=== PATIENT | female | born 1930 | race Caucasian/White ===

== ENCOUNTER 2017-05-14 21:11 | Emergency (ER) | payer OTHER ==
[~2017-05-14] VITALS: Ht 160 cm; Wt 66.8 kg
[~2017-05-14 21:11] MED LIST: ACCUPRIL40 MG; ACCUPRIL40 MG PO; ASPIRIN81 M1; ATENOLOL50 MG; CALICUM 500+D1 EACH PO; CLONIDINE HCL0.1 MG; GLUCOPHAGE500 MG PO; K-DUR10 ME2 PO; METFORMIN HCL500 MG; METOPROLOL TART25 MG PO; METOPROLOL TART50 MG PO; NAPROXEN375 M2; NORVASC10 MG; NORVASC10 MG PO; Norvasc PO; OS-CAL 500+D T1 EAC1 PO; Oyst-Cal D, Oscal W/ PO; PRAVACHOL40 MG PO; PRAVASTATIN SOD20 MG; PRILOSEC20 MG; RX BALANCE INT1 EACH PO; THERAGRAN1 TABLET PO; ZESTRIL20 MG; ZOCOR40 MG
[2017-05-14 22:14] LABS: HEMATOCRIT 38.1 % (36.0-46.0); MCH 30.3 PG (29.0-34.0); MCHC 34.6 G/DL (30.0-36.0); MCV 87.4 FL (83-99); MEAN PLAT.VOLUME 10.6 uM^3 (9.5-12.4); PLATELET COUNT 292 K/uL (156-360); RBC DIS.WIDTH-CV 12.6 % (11.8-14.6); RBC DIS.WIDTH-SD 40.1 % (39-53); RED BLOOD COUNT 4.36 M/uL (3.80-5.20); WHITE BLOOD COUNT 11.3 K/uL (4.1-10.2)
[2017-05-14 22:23] LABS: CHLORIDE 105 mEq/L (99-109); POTASSIUM 4.1 mEq/L (3.7-5.4); SODIUM 140 mEq/L (136-147)
[2017-05-14 22:26] LABS: GLUCOSE 128 mg/dL (70-99)
[2017-05-14 22:27] LABS: ANION GAP 12 MEQ/L (2-14)
[2017-05-14 22:28] LABS: TOTAL BILIRUBIN 0.6 mg/dL (0.0-1.0)
[2017-05-14 22:29] LABS: ALKALINE PHOSPHATASE 66 IU/L (3-129)
[2017-05-14 22:30] LABS: GFR ESTIMATE (CALCULATED) > 59 mL/min/
[2017-05-14 22:31] LABS: UREA NITROGEN (BUN) 22 mg/dL (9-23)
[2017-05-14 23:03] LABS: ADD MIUA? NO; BILIRUBIN NEGATIVE; BLOOD NEGATIVE; COLOR STRAW ((YELLOW)); GLUCOSE (STRIP) NEGATIVE; KETONES 5; LEUKOCYTES NEGATIVE; NITRITE NEGATIVE; PROTEIN (STRIP) NEGATIVE; SPECIFIC GRAVITY 1.005 (1.000-1.030); UCUL ADDED? NO; UROBILINOGEN 0.2 MG/DL (0.2-1.0)
[2017-05-15] MEDS ORDERED: ZOFRAN ODT4 MG PO (01:23)
[2017-05-15] MEDS ORDERED: CIPRO500 MG PO (01:23)
[2017-05-15] MEDS ORDERED: NORCO 5/3251 TABLET PO (01:23)
[2017-05-15] MEDS ORDERED: FLAGYL500 MG PO (01:23)
[2017-05-15 01:46] VITALS: BP 129/59
== END 2017-05-15 01:57 | disposition home or self-care (01) ==
LOC: EME 21:11 → EXP 21:11
PROVIDERS: Physician Assistant
DX: K57.92 Diverticulitis of intestine, part unspecified, without perforation or abscess without bleeding (principal); I10 Essential (primary) hypertension; E78.5 Hyperlipidemia, unspecified; E11.9 Type 2 diabetes mellitus without complications; Z90.49 Acquired absence of other specified parts of digestive tract; Z79.84 Long term (current) use of oral hypoglycemic drugs
CPT/HCPCS: 74020; 74177; 80053; 81003; 85027; 99281; 99285

== ENCOUNTER 2017-06-19 20:01 | Emergency (ER) | payer OTHER ==
[~2017-06-19] VITALS: Ht 160 cm; Wt 66.2 kg
[~2017-06-19 20:01] MED LIST changes: +CIPRO500 MG PO; +FLAGYL500 MG PO; +NORCO 5/3251 TABLET PO; +ZOFRAN ODT4 MG PO
[2017-06-19 21:01] LABS: HEMATOCRIT 37.5 % (36.0-46.0); MCH 30.2 PG (29.0-34.0); MCHC 34.7 G/DL (30.0-36.0); MCV 87.2 FL (83-99); PLATELET COUNT 497 K/uL (156-360); RBC DIS.WIDTH-CV 13.2 % (11.8-14.6); RBC DIS.WIDTH-SD 41.1 % (39-53); WHITE BLOOD COUNT 5.7 K/uL (4.1-10.2)
[2017-06-19 21:11] LABS: ALBUMIN 4.5 g/dL (3.2-4.8)
[2017-06-19 21:11] LABS: APPEARANCE CLEAR ((CLEAR)); BILIRUBIN NEGATIVE; BLOOD NEGATIVE; COLOR STRAW ((YELLOW)); GLUCOSE (STRIP) NEGATIVE; KETONES NEGATIVE; LEUKOCYTES NEGATIVE; NITRITE NEGATIVE; PROTEIN (STRIP) NEGATIVE; SPECIFIC GRAVITY 1.009 (1.000-1.030); UCUL ADDED? NO; UROBILINOGEN 0.2 MG/DL (0.2-1.0)
[2017-06-19 21:12] LABS: CHLORIDE 104 mEq/L (99-109); POTASSIUM 4.3 mEq/L (3.7-5.4); SODIUM 140 mEq/L (136-147)
[2017-06-19 21:14] LABS: GLUCOSE 109 mg/dL (70-99); TOTAL PROTEIN 8.1 g/dL (6.4-8.3)
[2017-06-19 21:16] LABS: TOTAL BILIRUBIN 0.3 mg/dL (0.0-1.0)
[2017-06-19 21:17] LABS: ALKALINE PHOSPHATASE 72 IU/L (3-129)
[2017-06-19 21:18] LABS: CREATININE 0.9 mg/dL (0.6-1.3); GFR ESTIMATE (CALCULATED) > 59 mL/min/
[2017-06-19 21:19] LABS: AST (GOT) 20 IU/L (2-34); UREA NITROGEN (BUN) 17 mg/dL (9-23)
[2017-06-19 21:21] LABS: ALT (GPT) 10 IU/L (3-49)
[2017-06-19] MEDS ORDERED: ZOFRAN ODT4 MG PO (23:10)
[2017-06-19] MEDS ORDERED: CELEXA10 MG PO (23:10)
[2017-06-20 00:18] VITALS: BP 142/73
== END 2017-06-20 00:19 | disposition home or self-care (01) ==
LOC: EME 20:01
DX: R11.0 Nausea (principal); I10 Essential (primary) hypertension; F41.9 Anxiety disorder, unspecified; E78.5 Hyperlipidemia, unspecified; E11.9 Type 2 diabetes mellitus without complications; Z79.84 Long term (current) use of oral hypoglycemic drugs; Z90.49 Acquired absence of other specified parts of digestive tract
CPT/HCPCS: 80053; 81003; 85027; 93005; 99281; 99284

== ENCOUNTER 2017-06-23 20:37 | Emergency (ER) | payer OTHER ==
[~2017-06-23] VITALS: Ht 160 cm; Wt 70.0 kg
[~2017-06-23 20:37] MED LIST changes: +CELEXA10 MG PO; -PRAVACHOL40 MG PO; +PRAVACHOL80 MG PO
[2017-06-23 21:00] LABS: HEMATOCRIT 36.4 % (36.0-46.0); HEMOGLOBIN 12.6 G/DL (11.9-15.5); MCH 29.7 PG (29.0-34.0); MCHC 34.6 G/DL (30.0-36.0); MCV 85.8 FL (83-99); PLATELET COUNT 361 K/uL (156-360); RBC DIS.WIDTH-SD 39.9 % (39-53); RED BLOOD COUNT 4.24 M/uL (3.80-5.20); WHITE BLOOD COUNT 7.5 K/uL (4.1-10.2)
[2017-06-23 21:08] LABS: ALBUMIN 4.4 g/dL (3.2-4.8)
[2017-06-23 21:09] LABS: CHLORIDE 101 mEq/L (99-109); POTASSIUM 4.1 mEq/L (3.7-5.4); SODIUM 134 mEq/L (136-147)
[2017-06-23 21:11] LABS: GLUCOSE 134 mg/dL (70-99); TOTAL PROTEIN 7.7 g/dL (6.4-8.3)
[2017-06-23 21:14] LABS: ALKALINE PHOSPHATASE 65 IU/L (3-129)
[2017-06-23 21:15] LABS: GFR ESTIMATE (CALCULATED) 56 mL/min/
[2017-06-23 21:16] LABS: AST (GOT) 20 IU/L (2-34); UREA NITROGEN (BUN) 21 mg/dL (9-23)
[2017-06-23 21:18] LABS: ALT (GPT) 11 IU/L (3-49)
[2017-06-23 21:26] LABS: TOTAL BILIRUBIN 0.4 mg/dL (0.0-1.0)
[2017-06-23 21:45] LABS: LIPASE 74 U/L (1.0-51.0)
[2017-06-23 21:57] LABS: APPEARANCE SL.HAZY ((CLEAR)); BILIRUBIN NEGATIVE; BLOOD NEGATIVE; COLOR YELLOW ((YELLOW)); GLUCOSE (STRIP) NEGATIVE; KETONES 20; LEUKOCYTES SMALL; NITRITE NEGATIVE; PROTEIN (STRIP) 30; SPECIFIC GRAVITY 1.016 (1.000-1.030); UROBILINOGEN 0.2 MG/DL (0.2-1.0)
[2017-06-23 22:08] LABS: BACTERIA NONE SEEN /HPF; EPITHELIAL CELLS RARE /HPF; HYALINE CASTS 0-5 /LPF; MUCUS TRACE /LPF; RED BLOOD CELLS 0-5 /HPF (0-5); UCUL ADDED? YES; WHITE BLOOD CELLS 15-20 /HPF (0-5)
[2017-06-23] MEDS ORDERED: ONDANSETRON ODT4 MG PO (22:57)
[2017-06-23] MEDS ORDERED: AUGMENTIN875 MG PO (22:57)
[2017-06-24 00:40] VITALS: BP 136/67
[2017-06-25] MEDS ORDERED: CELEXA10 MG PO (19:17)
[2017-06-25] MEDS ORDERED: ADULT ASPIRIN R81 MG PO (19:18)
[2017-06-25] MEDS ORDERED: CLARITIN,ALAVAR10 MG PO (19:18)
[2017-06-25] MEDS ORDERED: PRINIVIL20 MG PO (19:19)
[2017-06-25] MEDS ORDERED: RANITIDINE HCL150 MG PO (19:19)
== END 2017-06-24 00:42 | disposition home or self-care (01) ==
LOC: EME → EDBD 20:37 → EME 20:37
DX: K57.32 Diverticulitis of large intestine without perforation or abscess without bleeding (principal); R11.2 Nausea with vomiting, unspecified; R42 Dizziness and giddiness; N28.1 Cyst of kidney, acquired; K41.20 Bilateral femoral hernia, without obstruction or gangrene, not specified as recurrent; Z90.49 Acquired absence of other specified parts of digestive tract; I10 Essential (primary) hypertension; E78.5 Hyperlipidemia, unspecified; E11.9 Type 2 diabetes mellitus without complications; Z79.84 Long term (current) use of oral hypoglycemic drugs
CPT/HCPCS: 74177; 80053; 81003; 83690; 85027; 87086; 99281; 99285; J2405; J7030

== ENCOUNTER 2017-06-25 16:17 | Observation (INO) | payer OTHER ==
[~2017-06-25] VITALS: Ht 160 cm; Wt 64.5 kg
[~2017-06-25 16:17] MED LIST changes: +AUGMENTIN875 MG PO; +ONDANSETRON ODT4 MG PO
[2017-06-25 17:02] LABS: HEMATOCRIT 36.5 % (36.0-46.0); HEMOGLOBIN 12.9 G/DL (11.9-15.5); MCH 30.2 PG (29.0-34.0); MCHC 35.3 G/DL (30.0-36.0); MCV 85.5 FL (83-99); PLATELET COUNT 309 K/uL (156-360); RBC DIS.WIDTH-CV 13.4 % (11.8-14.6); RBC DIS.WIDTH-SD 40.8 % (39-53); RED BLOOD COUNT 4.27 M/uL (3.80-5.20); WHITE BLOOD COUNT 8.9 K/uL (4.1-10.2)
[2017-06-25 17:22] LABS: ALBUMIN 4.4 g/dL (3.2-4.8); CHLORIDE 102 mEq/L (99-109); POTASSIUM 3.9 mEq/L (3.7-5.4); SODIUM 135 mEq/L (136-147)
[2017-06-25 17:25] LABS: GLUCOSE 150 mg/dL (70-99); TOTAL PROTEIN 7.5 g/dL (6.4-8.3)
[2017-06-25 17:26] LABS: TOTAL BILIRUBIN 0.4 mg/dL (0.0-1.0)
[2017-06-25 17:28] LABS: TROP-I INTERPRETATION NEGATIVE; TROPONIN-I < 0.01 ng/mL (0.0-0.30)
[2017-06-25 17:29] LABS: ALKALINE PHOSPHATASE 60 IU/L (3-129); CREATININE 0.9 mg/dL (0.6-1.3); GFR ESTIMATE (CALCULATED) > 59 mL/min/; UREA NITROGEN (BUN) 21 mg/dL (9-23)
[2017-06-25 17:30] LABS: AST (GOT) 25 IU/L (2-34)
[2017-06-25 17:31] LABS: ALT (GPT) 14 IU/L (3-49)
[2017-06-25 17:32] LABS: LIPASE 54 U/L (1.0-51.0)
[2017-06-25] MEDS ORDERED: CELEXA10 MG PO (19:17)
[2017-06-25] MEDS ORDERED: CLARITIN,ALAVAR10 MG PO (19:18)
[2017-06-25] MEDS ORDERED: ADULT ASPIRIN R81 MG PO (19:18)
[2017-06-25] MEDS ORDERED: PRINIVIL20 MG PO (19:19)
[2017-06-25] MEDS ORDERED: RANITIDINE HCL150 MG PO (19:19)
[2017-06-25 20:59] LABS: APPEARANCE CLEAR ((CLEAR)); BILIRUBIN NEGATIVE; BLOOD NEGATIVE; COLOR COLORLESS ((YELLOW)); GLUCOSE (STRIP) NEGATIVE; KETONES NEGATIVE; LEUKOCYTES NEGATIVE; NITRITE NEGATIVE; PROTEIN (STRIP) NEGATIVE; SPECIFIC GRAVITY 1.005 (1.000-1.030); UCUL ADDED? NO; UROBILINOGEN 0.2 MG/DL (0.2-1.0)
[2017-06-26 00:40] VITALS: BP 145/66
[2017-06-26 04:36] VITALS: BP 106/56
[2017-06-26 05:26] LABS: TROP-I INTERPRETATION NEGATIVE; TROPONIN-I 0.01 ng/mL (0.0-0.30)
[2017-06-26 09:40] VITALS: BP 133/57
[2017-06-26 12:00] VITALS: BP 120/58
[2017-06-26 16:00] VITALS: BP 115/59
[2017-06-26 19:45] VITALS: BP 109/54
[2017-06-27] VITALS: BP 114/55
[2017-06-27 04:00] VITALS: BP 112/58
[2017-06-27 06:11] LABS: HEMATOCRIT 33.5 % (36.0-46.0); HEMOGLOBIN 11.6 G/DL (11.9-15.5); MCHC 34.6 G/DL (30.0-36.0); MCV 86.6 FL (83-99); PLATELET COUNT 258 K/uL (156-360); RBC DIS.WIDTH-CV 13.6 % (11.8-14.6); RBC DIS.WIDTH-SD 41.7 % (39-53); RED BLOOD COUNT 3.87 M/uL (3.80-5.20); WHITE BLOOD COUNT 9.1 K/uL (4.1-10.2)
[2017-06-27 06:35] LABS: CHLORIDE 103 MEQ/L (99-109); CREATININE 0.9 MG/DL (0.6-1.3); GFR ESTIMATE (CALCULATED) > 59 mL/min/; POTASSIUM 3.9 MEQ/L (3.7-5.4); SODIUM 137 MEQ/L (136-147); UREA NITROGEN (BUN) 19 mg/dL (9-23)
[2017-06-27 06:54] LABS: GLUCOSE 107 mg/dL (70-99)
== END 2017-06-27 12:57 | disposition home or self-care (01) ==
LOC: EME 16:17 → EDOF 22:51 → 5WEST 22:51 → EDOF 22:51 → ENRESERV 22:57 → EDOF 06-26 → 5WEST 06-26 00:01 → ENPENDDIS 06-27 11:34 → 5WEST 06-27 12:57
PROVIDERS: Emergency Medicine; Hospitalist; Nurse Practitioner Adult Health
DX: R55 Syncope and collapse (principal); K57.92 Diverticulitis of intestine, part unspecified, without perforation or abscess without bleeding; R11.2 Nausea with vomiting, unspecified; E11.9 Type 2 diabetes mellitus without complications; I44.0 Atrioventricular block, first degree; I45.2 Bifascicular block; I25.10 Atherosclerotic heart disease of native coronary artery without angina pectoris; I25.2 Old myocardial infarction; I10 Essential (primary) hypertension; E78.5 Hyperlipidemia, unspecified; M19.90 Unspecified osteoarthritis, unspecified site; Z79.82 Long term (current) use of aspirin; Z82.49 Family history of ischemic heart disease and other diseases of the circulatory system; Z83.3 Family history of diabetes mellitus
CPT/HCPCS: 74019; 80048; 80053; 81003; 82948; 83690; 84484; 85027; 87502; 93005; 99281; 99285; G0378; J1644; J1815; J2405; J7030; J7512